=== PATIENT | female | born 2005 | race African-American/Black ===

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

== ENCOUNTER 2025-04-13 21:53 | Emergency (ER) | payer BC, SELFPAY ==
[2025-04-13 21:59] VITALS: BP 109/70; PULSE 114; RESP 16; TEMP 37; O2SAT 98; BMI 16.9
[2025-04-13 22:21] LABS: Appearance Urine Clear (Clear)
[2025-04-13 22:29] LABS: Ur HCG Qualitative* Negative (Negative)
--- NOTE | 2025-04-13 23:03 | ED.ABDPAIN ---
HPI - Abdominal Pain General Chief Complaint: Abdominal Pain Stated Complaint: Lower abd pain Time Seen by Provider: 04/13/25 22:05 History of Present Illness HPI narrative: This 20-year-old female comes in reporting lower abdominal pain that began yesterday and then seemed to worsen this morning. She states that she woke up with lower abdominal pain at about 5:30 a.m.. Pain is persisted through the day but seems to be a bit better as time goes on. She states that she is otherwise healthy. She does not have any vomiting or fever symptoms. She does not have any altered bowel function or dysuria symptoms. She does have a history of a ruptured ovarian cyst that was identified a couple years ago. She does not report any problem taking food today. Related Data Home Medications ?Medication ?Instructions ?Recorded ?Confirmed No Known Home Medications 04/13/25 04/13/25 Allergies Allergy/AdvReac Type Severity Reaction Status Date / Time No Known Drug Allergies Allergy Verified 04/13/25 22:04 Review of Systems Status of ROS Reports: 10 or more systems reviewed and unremarkable except as noted in History and below Narrative Constitutional: No fevers, no weight gain or loss. Eyes: No discharge. No vision changes. HENT: No congestion, no sore throat, no ear pain. Cardiovascular: No chest pain, no palpitations. Respiratory: No shortness of breath, no wheezes, no cough. Gastrointestinal: No vomiting, no diarrhea. Abdominal pain as described above. Genitourinary: No dysuria, no hematuria. Musculoskeletal: Normal range of motion. Skin: No rashes, no pruritis. Neurological: No dizziness, weakness, sensory change, speech change. Endo/Heme/Allergies: No bruising or bleeding. No polydipsia. Pysch: no suicidality, no anxiety, no insomnia. All other systems reviewed and are negative. [facility] Medical History (Updated 04/13/25 @ 23:07 by Kulwinder Franz MD) No significant past medical history Surgical History (Updated 12/08/23 @ 23:33 by Emanuel Messina RN) No significant past surgical history Social History Smoking Status: Never smoker Do you use any of these nicotine containing products: None Second hand tobacco smoke exposure: No How often do you have a drink containing alcohol: monthly or less AUDIT-C Alcohol total score: 1 Non-prescribed substance use: denies use service: No Exam Narrative: Exam Narrative: Constitutional: Well-developed, well-nourished, no acute distress. HEENT: Normocephalic, atraumatic. Neck: Normal range of motion. Nontender. Supple. Heart: Regular. No murmurs. Normal rate. Intact distal pulses. Lungs: Clear to auscultation. No chest discomfort. No wheezes, rhonchi, or rales. Abdomen: Normal bowel sounds. Tenderness across the lower abdomen. No rebound tenderness. Genitalia: Deferred. Back: No midline tenderness. Normal range of motion. Extremities: Normal range of motion. No injury. Skin: Intact. No rash. Warm. No erythema or pallor. Neurologic: No altered sensation. No weakness. Alert and oriented. Psychiatric: No suicidality. No anxiety or depression. No insomnia. Nursing notes and vitals signs are reviewed. Const: Vital Signs, click to edit/add: Vital Signs - 24 hr 04/13/25 21:59 Temperature 98.6 F Pulse Rate [Pulse Oximeter] 114 H Respiratory Rate 16 Blood Pressure [Ri ght Upper Arm] 109/70 Pulse Oximetry 98 Oxygen Delivery Me thod Room Air Course Vital Signs Vital signs: Initial Vital Signs Temperature 98.6 F 04/13/25 21:59 Temperature Source Temporal Artery Scan 04/13/25 21:59 Pulse Rate 114 H 04/13/25 21:59 Respiratory Rate 16 04/13/25 21:59 Blood Pressure 109/70 04/13/25 21:59 Blood Pressure Mean 83 04/13/25 21:59 Pulse Oximetry 98 04/13/25 21:59 Oxygen Delivery Method Room Air 04/13/25 21:59 Vital Signs Temperature 98.6 F 04/13/25 21:59 Pulse Rate 114 H 04/13/25 21:59 Respiratory Rate 16 04/13/25 21:59 Blood Pressure 109/70 04/13/25 21:59 Pulse Oximetry 98 04/13/25 21:59 Oxygen Delivery Method Room Air 04/13/25 21:59 Temperature 98.6 F 04/13/25 21:59 Pulse Rate 114 H 04/13/25 21:59 Respiratory Rate 16 04/13/25 21:59 Blood Pressure 109/70 04/13/25 21:59 Pulse Oximetry 98 04/13/25 21:59 Oxygen Delivery Method Room Air 04/13/25 21:59 MDM - Abdominal Pain MDM Narrative Medical decision making narrative: This patient comes in with lower abdominal pain. She does not really have rebound tenderness and bowel sounds are reassuring. She does not describe any dysuria symptoms but states that she did feel some sense of pressure when voiding urine. Urinalysis is obtained and shows no evidence of infection. She does have some microscopic blood in the urine. She has a negative test. I did discuss imaging options and the patient is preferring to have bedside ultrasound. I did look at her upper and lower abdomen and saw normal anatomy. She does not really have tenderness at McBurney's point. Her pain is more across the lower abdomen just above the pubic bone. And there is some suspicion of a ovarian cyst. Again I did discuss the role of CT imaging and transvaginal ultrasound. The patient decided against doing either of these studies for today but understands that she can return if symptoms are persistent or worsening. She did receive an [employer] prescription for Toradol. Lab Data Labs: Lab Results 04/13/25 Range/Units 22:10 Urine Color Yellow (Yellow) Urine Appearance Clear (Clear) Urine pH 7.0 (5.0-8.5) Ur Specific [place] 1.020 (1.000-1.030) Urine Protein Negative (Negative) Urine Glucose (UA) Negative (Negative) Urine Ketones 2+ A (Negative) Urine Blood Trace-intact A (Negative) Urine Nitrite Negative (Negative) Urine Bilirubin Negative (Negative) Urine Urobilinogen 0.2 (0.2-1.0) Ur Leukocyte Esterase Trace A (Negative) Urine RBC 2-5 A (0-2) Urine WBC 2-5 (0-5) Ur Squamous Epith Cells Few (None-Few) Amorphous Sediment Few A (None) Urine Bacteria Moderate A (None) Urine Mucus Few A (None) Urine HCG, Qual Negative (Negative) Discharge Plan Discharge Clinical Impression: Abdominal pain Patient Disposition: Home, Self-Care Condition: Stable Additional Instructions: Take medication as prescribed and needed. Follow up with MD return if symptoms are persistent or worsening. Prescriptions: No Action No Known Home Medications Follow Up/Referrals: Provider,Not a Local [Primary Care Provider, Family Practice] Stand Alone Forms: [employer] Info Instructions
== END 2025-04-13 23:14 | disposition home or self-care (01) ==
PROVIDERS: Emergency Provider Emergency Medicine Emergency Medical Services
DX: R10.30 Lower abdominal pain, unspecified (principal)
CPT/HCPCS: 81001; 81025; 87086; 99283; 99284

== ENCOUNTER 2025-07-03 17:13 | Emergency (ER) | payer BC, SELFPAY ==
[2025-07-03 17:15] VITALS: BP 123/87; PULSE 93; RESP 18; TEMP 37.2; O2SAT 100; BMI 17.1
--- NOTE | 2025-07-03 17:19 | ED_ITS ---
HPI - General Adult General Chief complaint: Diarrhea Stated complaint: Diarrhea Time Seen by Provider: 07/03/25 17:19 History of Present Illness HPI narrative: Patient presents to the emergency department complaining of diarrhea. Patient states this has been going on for about a week. Patient states any time she eats or drinks she shortly after has a bout of diarrhea. 20-year-old young woman presenting to emergency department with concern of diarrhea. Rather copious and watery. Feels lot of cramping that then resolves mostly after bowel movement. This all began spontaneously about a week ago. She has not had any fever. Has not been vomiting. Any oral ingestion tends to trigger the need to have a bowel movement but mostly from food. Does not have a history of irritable bowel. Treated herself recently with boric acid rinses/do she for presumed yeast infection that she thought probably got from all this frequent stooling. She has had bowel accidents this week. Rather raw anal area so does have some blood now with wiping she says. No particular exposures. Did try Imodium without relief. Even took more than recommended. Does not sure what to do anymore. Related Data Previous Rx's ?Medication ?Instructions ?Recorded diphenoxylate-atropine 2.5 2 tab PO QID PRN diarrhea # 18 tabs 07/03/25 mg-0.025 mg tablet (Lomotil) Allergies Allergy/AdvReac Type Severity Reaction Status Date / Time No Known Drug Allergies Allergy Verified 07/03/25 17:19 Review of Systems Status of ROS: Reports: 6 or more systems reviewed and unremarkable except as noted in History and below [facility] Medical History No significant past medical history Surgical History (Updated 12/08/23 @ 23:33 by Emanuel Messina RN) No significant past surgical history Social History Smoking Status: Never smoker Do you use any of these nicotine containing products: None Second hand tobacco smoke exposure: No How often do you have a drink containing alcohol: monthly or less AUDIT-C Alcohol total score: 1 Non-prescribed substance use: denies use service: No Exam Narrative: Exam Narrative: Pleasant. NAD. Slim. Skin is warm and dry. Oropharynx is moist. Breathing easily. Heart in regular rate and rhythm without murmur rub or gallop. Abdomen with normal bowel sounds is flat soft and nontender although notes that just really has to pee. Const: Vital Signs, click to edit/add: Vital Signs - 24 hr 07/03/25 17:15 Temperature 99.0 F Pulse Rate [Right Pulse Oximeter] 93 Respiratory Rate 18 Blood Pressure [Ri ght Upper Arm] 123/87 Pulse Oximetry 100 Oxygen Delivery Me thod Room Air Documenting provider has reviewed patient's vital signs: yes Course Vital Signs Vital signs: Initial Vital Signs Temperature 99.0 F 07/03/25 17:15 Temperature Source Temporal Artery Scan 07/03/25 17:15 Pulse Rate 93 07/03/25 17:15 Pulse Rhythm Regular 07/03/25 17:15 Pulse Strength 3+ Normal 07/03/25 17:15 Respiratory Rate 18 07/03/25 17:15 Blood Pressure 123/87 07/03/25 17:15 Blood Pressure Mean 99 07/03/25 17:15 Blood Pressure Position Sitting 07/03/25 17:15 Pulse Oximetry 100 07/03/25 17:15 Oxygen Delivery Method Room Air 07/03/25 17:15 Vital Signs Temperature 99.0 F 07/03/25 17:15 Pulse Rate 93 07/03/25 17:15 Respiratory Rate 18 07/03/25 17:15 Blood Pressure 123/87 07/03/25 17:15 Pulse Oximetry 100 07/03/25 17:15 Oxygen Delivery Method Room Air 07/03/25 17:15 Temperature 99.0 F 07/03/25 17:15 Pulse Rate 93 07/03/25 17:15 Respiratory Rate 18 07/03/25 17:15 Blood Pressure 123/87 07/03/25 17:15 Pulse Oximetry 100 07/03/25 17:15 Oxygen Delivery Method Room Air 07/03/25 17:15 Medications Administered Medications: Discontinued Medications Generic Name Dose Route Start Last Admin Trade Name Freq PRN Reason Stop Dose Admin Hyoscyamine 0.25 mg 07/03/25 17:36 07/03/25 18:03 Hyoscyamine Sulfate 0.125 Mg Tab SUBLINGUAL 07/03/25 17:37 0.25 mg ONCE ONE Administration Medical Decision Making MDM Narrative Medical decision making narrative: Likely infectious etiology to this diarrhea. Does not have any particular exposures however had no historical food intolerances/allergies. Expresses some anxiety over collecting stool sample; that she would have to visualize it. She feels that she is managing to keep enough water in orally and she does not really like how IVs seem to fill for up too much or something like that. Is amenable to blood collection. Low risk for C diff but would screen for this as well as general stool culture considering what I am seeing in the community currently. Labs are collected. Overall reassuring. Is normal white count and normal exam I think unlikely to have C diff as noted above. Would still like to collect stool sample for culture. She does decided she would like to try to eat as typically eating is generating bowel movement. We discussed options for treatment. She would appreciate having potential antispasmodic. Prescribed some hyoscyamine Given a sandwich per request. Still unable to produce a stool sample for us over time in the emergency department. Vitals are normal. Does not have a significant escalation in pain in the emergency department. She would prefer to leave with stool sample collection kit See patient discharge plan for further discussion Would recommend barrier cream/paste like triple paste perhaps on the anal area. Maybe a toilet top bidet would be helpful? Continue to push fluids. Gentle diet. Diluted juices, soup broths, soups, crackers, rice, toast. Please bring back a diarrheal stool sample for culture; unless you are all better in the next 2 days. I would otherwise also establish a primary care provider. Am prescribing some Lomotil to slow up your diarrhea. Do not take this or loperamide though if you develop a fever or see repeated blood actually in your stool. Medical Records Medical records reviewed: Yes I reviewed the patient's medical records Lab Data Lab results reviewed: Yes I reviewed the patient's lab results Labs: Lab Results 07/03/25 Range/Units 17:45 WBC 4.80 (4.50-11.00) K/uL RBC 4.74 (4.00-5.20) m/uL Hgb 12.1 (12.0-16.0) gm/dL Hct 37.7 (33.0-51.0) % MCV 80 (80-100) fL MCH 26 (26-34) pg MCHC 32 (32-36) gm/dL RDW Coeff of Atul 13.9 (11.5-15.5) % Plt Count 240 (140-440) K/uL Neut % (Auto) 59.2 (42.0-72.0) % Lymph % (Auto) 28.1 (20-44) % Faulk % (Auto) 11.3 H (0.0-11.0) % Eos % (Auto) 0.8 (0.0-7.0) % Baso % (Auto) 0.4 (0.0-3.0) % Neut # (Auto) 2.84 (1.7-7.0) K/uL Lymph # (Auto) 1.35 (0.90-2.90) K/uL Faulk # (Auto) 0.50 (0.00-0.90) K/UL Eos # (Auto) 0.04 (0.00-0.50) K/uL Baso # (Auto) 0.02 (0.00-0.30) K/uL Abs Immat Gran (auto) 0.01 (0.00-0.30) K/uL Imm/Tot Granulo (auto) 0.2 % Sodium 137 (135-149) mmol/L Potassium 3.7 (3.6-5.1) mmol/L Chloride 105 (96-114) mmol/L Carbon Dioxide 26 (20-32) mmol/L Anion Gap 6 L (7-15) mEq/L BUN 5 (5-24) mg/dL Creatinine 0.6 (0.5-1.5) mg/dL Estimated Creat Clear 113.52 Estimated GFR 132 ml/min Glucose 99 (60-115) mg/dL Calcium 9.0 (8.4-10.6) mg/dL C-Reactive Protein < 0.5 L (0.5-1.0) mg/dL Discharge Plan Discharge Clinical Impression: Diarrhea, Colicky abdominal pain Patient Disposition: Home w/ Parent or Adult Condition: Stable Additional Instructions: Would recommend barrier cream/paste like triple paste perhaps on the anal area. Maybe a toilet top bidet would be helpful? Continue to push fluids. Gentle diet. Diluted juices, soup broths, soups, crackers, rice, toast. Please bring back a diarrheal stool sample for culture; unless you are all better in the next 2 days. I would otherwise also establish a primary care provider. Am prescribing some Lomotil to slow up your diarrhea. Do not take this or loperamide though if you develop a fever or see repeated blood actually in your stool. Prescriptions: New diphenoxylate-atropine [Lomotil] 2.5-0.025 mg tablet 2 tab PO QID PRN (Reason: diarrhea) Qty: 18 0RF Follow Up/Referrals: Provider,Not a Local [Primary Care Provider, Family Practice] Stand Alone Forms: [email or web address] Info Instructions
[2025-07-03] MEDS: HYOSCYAMINE SULFATE 0.125 MG TAB 0.25 MG SUBLINGUAL (18:03)
[2025-07-03 18:04] LABS: Hematocrit* 37.7 % (33.0-51.0); Hemoglobin* 12.1 gm/dL (12.0-16.0); Immature Granulocytes Abs Auto 0.01 K/uL (0.00-0.30); Immature Granulocytes Pct Auto 0.2 %; Lymphocytes Absolute Auto 1.35 K/uL (0.90-2.90); Mean Corpuscular HGB Conc 32 gm/dL (32-36); Mean Corpuscular Hemoglobin 26 pg (26-34); Mean Corpuscular Volume 80 fL (80-100); RDW Coefficient of Variation % 13.9 % (11.5-15.5); Red Blood Count* 4.74 m/uL (4.00-5.20); White Blood Count* 4.80 K/uL (4.50-11.00)
[2025-07-03 18:05] LABS: Slide Review Reflex No
[2025-07-03 18:13] LABS: Chloride* 105 mmol/L (96-114); Potassium* 3.7 mmol/L (3.6-5.1); Sodium* 137 mmol/L (135-149)
[2025-07-03 18:17] LABS: Anion Gap 6 mEq/L (7-15); Blood Urea Nitrogen* 5 mg/dL (5-24); Calcium* 9.0 mg/dL (8.4-10.6); Carbon Dioxide* 26 mmol/L (20-32); Creatinine* 0.6 mg/dL (0.5-1.5); Est. Creatinine Clearance* 113.52; Estimated Glomerular Filt Rate 132 ml/min; Glucose* 99 mg/dL (60-115)
[2025-07-04 11:49] LABS: C.Difficile Negative (Negative); CDIFFEPI 027 PRESUMPTIVE NEGATIVE (Negative)
== END 2025-07-03 20:03 | disposition home or self-care (01) ==
PROVIDERS: Emergency Provider Family Medicine
DX: R19.7 Diarrhea, unspecified (principal); R10.84 Generalized abdominal pain
CPT/HCPCS: 36415; 80048; 85025; 86140; 87045; 87046; 87427; 87493; 99283; 99284; A9270

== ENCOUNTER 2025-09-06 00:19 | Emergency (ER) | payer BC, SELFPAY ==
--- NOTE | 2025-09-06 00:26 | ED.FEVER ---
HPI - Fever General Time Seen by Provider: 00:26 Date Seen: 09/06/25 Chief Complaint: Fever Stated Complaint: Fever, stiff neck Time Seen by Provider: 09/06/25 00:22 Source: patient Mode of arrival: ambulatory History of Present Illness HPI Narrative: Elvira is 20 year old female with no significant past medical history who presents the emergency department for evaluation of fever. Patient reports that on Sunday she got fake eyelashes on. Patient believes she may have developed pinkeye or a chemical reaction/burn to her eye. Patient states that initially on Sunday after the treatment she had watery right eye. Patient states that on Sunday she developed fever with T-max at home of 102, body aches, headache, sore throat, neck pain//shortness. Patient also noted her right eye being sore, burning sensation, as well as redness, and crusty drainage. Patient denies any vision changes, reports discomfort is around the eyelid but no specific eye pain or pain with movement of her eye. Patient does report headache, body aches. Denies any cough, shortness of breath, chest pain, abdominal pain, vomiting. No rash, no urinary symptoms. Patient has been taking Tylenol and NyQuil with symptoms. No family members with similar illnesses. Patient works at [employer] Related Data Home Medications ?Medication ?Instructions ?Recorded ?Confirmed acetaminophen 500 mg tablet 500 mg PO Q6H PRN 09/06/25 09/06/25 (Tylenol Extra Strength) Previous Rx's ?Medication ?Instructions ?Recorded erythromycin 5 mg/gram (0.5 %) eye 1 applic ophthalmic (eye) Q6H 5 09/06/25 ointment days #3.5 grams Allergies Allergy/AdvReac Type Severity Reaction Status Date / Time No Known Drug Allergies Allergy Verified 09/06/25 00:39 Review of Systems Narrative Past medical history, past surgical history, medications, allergies, family history, and social history were reviewed with the patient. No additional pertinent items. A medically appropriate review of systems was performed with pertinent positives and negatives noted in HPI, all other systems negative. [facility] Medical History No significant past medical history Surgical History (Updated 12/08/23 @ 23:33 by Emanuel Messina RN) No significant past surgical history Social History Smoking Status: Never smoker Do you use any of these nicotine containing products: None Second hand tobacco smoke exposure: No How often do you have a drink containing alcohol: monthly or less AUDIT-C Alcohol total score: 1 Non-prescribed substance use: denies use service: No Exam Narrative Exam Narrative: General: Afebrile, in distress HEENT: Normocephalic, atraumatic, right eye with mild erythema to eyelids, periorbital region, +crusty discharge, conjunctiva injected, PERRL, EOMI, no pain with EOMI, posterior pharynx with no significant erythema, swelling, exudates, no asymmetry, TMs non bulging, mild erythema right auditory canal, MMM Neck: non-tender, supple, patient does report soreness with movement of her neck however does still have full range of motion, no meningeal signs Cardio: regular rate. regular rhythm Resp: Normal work of breathing, no respiratory distress, lungs clear bilaterally, no wheezing, rhonchi, rales Chest/Back: no visual signs of trauma, no midline tenderness, no CVA tenderness Abdomen: soft, non distension, no tenderness, no peritoneal signs Neuro: alert and fully oriented. CN II-XII intact. Normal strength and sensation in all extremities. MSK: no deformities. Normal range of motion Integumentary/Skin: no rash visualized, normal color Psych: normal affect, normal behavior Const Vital Signs, click to edit/add: Vital Signs - 24 hr 09/06/25 00:29 09/06/25 00:48 09/06/25 00:53 Temperature 98.8 F 98.8 F Pulse Rate [Right Pulse Oximeter] 127 H 127 H Respiratory Rate 22 22 Blood Pressure [Right Arm] 116/73 Blood Pressure [Right Upper Arm] 116/73 Pulse Oximetry 98 98 98 Oxygen Delivery Method Room Air Room Air Course Vital Signs Vital signs: Initial Vital Signs Temperature 98.8 F 09/06/25 00:29 Temperature Source Temporal Artery Scan 09/06/25 00:29 Pulse Rate 127 H 09/06/25 00:29 Pulse Rhythm Regular 09/06/25 00:29 Respiratory Rate 22 09/06/25 00:29 Blood Pressure 116/73 09/06/25 00:29 Blood Pressure Mean 87 09/06/25 00:29 Blood Pressure Position Supine 09/06/25 00:29 Pulse Oximetry 98 09/06/25 00:29 Oxygen Delivery Method Room Air 09/06/25 00:29 Vital Signs Temperature 98.8 F 09/06/25 00:29 Pulse Rate 127 H 09/06/25 00:29 Respiratory Rate 22 09/06/25 00:29 Blood Pressure 116/73 09/06/25 00:29 Pulse Oximetry 98 09/06/25 00:29 Oxygen Delivery Method Room Air 09/06/25 00:29 Temperature 98.8 F 09/06/25 00:48 Pulse Rate 127 H 09/06/25 00:48 Respiratory Rate 22 09/06/25 00:48 Blood Pressure 116/73 09/06/25 00:48 Pulse Oximetry 98 09/06/25 00:53 Oxygen Delivery Method Room Air 09/06/25 00:48 Medications Administered Medications: Discontinued Medications Generic Name Dose Route Start Last Admin Trade Name Freq PRN Reason Stop Dose Admin Diphenhydramine HCl 25 mg 09/06/25 01:15 09/06/25 03:34 Diphenhydramine 50 Mg/Ml Inj IVP 09/06/25 01:16 25 mg ONCE ONE Administration Sodium Chloride 1,000 mls @ 1,000 mls/hr 09/06/25 01:00 09/06/25 01:00 0.9 % Sodium Chloride 1000 Ml IV 09/06/25 01:59 1,000 mls/hr .Q1H MATILDE Administration Ketorolac Tromethamine 15 mg 09/06/25 00:53 09/06/25 01:00 Ketorolac 15 Mg/Ml Inj IVP 09/06/25 00:54 15 mg ONCE ONE Administration Metoclopramide HCl 10 mg 09/06/25 01:09 09/06/25 03:34 Metoclopramide Hcl 5 Mg/Ml Inj IVP 09/06/25 01:10 10 mg ONCE ONE Administration MDM - Fever MDM Narrative Medical decision making narrative: Elvira is 20 year old female with no significant past medical history who presents the emergency department for evaluation of fever. Upon arrival patient is nontoxic appearing, afebrile, in distress secondary to pain. Patient tachycardic upon arrival with heart rate initially 127 on triage however once settled in the examination room heart rate 99. Blood pressure 116/73, afebrile 98.8, oxygen 98% on room air. Differential diagnosis includes but is not limited to viral illness versus strep versus influenza/COVID/RSV versus conjunctivitis versus less likely preseptal/orbital cellulitis versus less likely meningitis versus less likely pneumonia versus cystitis among others. Upon arrival patient was treated with IV Toradol, Reglan, Benadryl, 1 L IV fluid bolus, comprehensive labs, urinalysis performed. Comprehensive labs remarkable for white blood cell count 9.8, hemoglobin 10.9, lactic normal at 0.7, no acute metabolic electrolyte abnormality, no transaminitis, procalcitonin negative. Viral testing negative for COVID/RSV/influenza. Strep negative. Urinalysis with ketones, nitrite negative, +1 leukocyte esterase, 10-25 white blood cells with moderate squamous cells, moderate bacteria. I discussed results with patient. Patient with no urinary symptoms, could be contaminant. At this time will defer antibiotics and follow-up on urinary culture. On re-evaluation patient does report improvement of her symptoms, patient with improvement of tachycardia at a heart rate of 90. I discussed results with patient. Overall patient is nontoxic appearing. Low suspicious for systemic infection, bacteremia given no leukocytosis, normal procalcitonin, normal lactic acid. Influenza/COVID/RSV/strep negative. Low concern for meningitis/pneumonia/orbital cellulitis given overall nontoxic appearing, ED workup reassuring with laboratory testing unremarkable, patient with no cough, chest pain,, shortness of breath, lungs are clear so will hold off on chest x-ray at this time. Patient with no meningeal signs, suspect more conjunctivitis/chemical reaction then orbital cellulitis given no pain with extraocular movements, no significant orbital erythema, no swelling, no vision changes, afebrile. Discussed with patient all will place her on ophthalmic ointment to her right eye 4 times a day for the next 5 days. Recommend continue supportive care with Tylenol, ibuprofen, rest, oral hydration. Encouraged close outpatient follow-up with primary care provider for re-evaluation. Strict return precautions discussed. Patient understands and agrees with the plan. Medical Records Attestation: I reviewed the patient's medical records. Lab Data Attestation: I reviewed the patient's lab results. Discharge Plan Discharge Clinical Impression: Fever Patient Disposition: Home, Self-Care Condition: Improved Additional Instructions: Please follow-up with your primary care provider in the next 2-3 days for further evaluation and follow-up. Please call to schedule appointment. Please rest, drink plenty of fluids. Please alternate taking Tylenol 1000 mg and ibuprofen 600 mg every 6 hours as needed for fever, body aches. Please apply ophthalmic ointment 4 times a day (every 6 hours) to your right eye. Please return to the emergency department if you develop any worsening symptoms. It was a pleasure taking care of you today. We hope you feel better soon. Activity Level: No Restrictions Discharge Diet: Regular Prescriptions: New erythromycin 5 mg/gram (0.5 %) ointment 1 applic ophthalmic (eye) Q6H 5 Days Qty: 3.5 0RF No Action acetaminophen [Tylenol Extra Strength] 500 mg tablet 500 mg PO Q6H PRN Follow Up/Referrals: Provider,Not a Local [Primary Care Provider, Family Practice] Stand Alone Forms: [employer] Info Instructions
[2025-09-06 00:29] VITALS: BP 116/73; PULSE 127; RESP 22; TEMP 37.1; O2SAT 98; BMI 17.3
[2025-09-06 00:48] VITALS: BP 116/73; PULSE 127; RESP 22; TEMP 37.1; O2SAT 98
[2025-09-06 00:53] VITALS: O2SAT 98
[2025-09-06] MEDS: METOCLOPRAMIDE HCL 5 MG/ML INJ 10 MG IVP (03:34)
[2025-09-06 03:49] VITALS: PULSE 90; O2SAT 100
[2025-09-06 04:22] LABS: Lactate* 0.7 mmol/L (0.5-1.9)
[2025-09-06 04:23] LABS: Hematocrit* 33.1 % (33.0-51.0); Hemoglobin* 10.9 gm/dL (12.0-16.0); Mean Corpuscular HGB Conc 33 gm/dL (32-36); Mean Corpuscular Hemoglobin 25 pg (26-34); Mean Corpuscular Volume 77 fL (80-100); Red Blood Count* 4.29 m/uL (4.00-5.20); White Blood Count* 9.82 K/uL (4.50-11.00)
[2025-09-06 04:24] LABS: Lymphocytes Absolute Auto 0.70 K/uL (0.90-2.90); Slide Review Reflex No
[2025-09-06 04:25] LABS: PCR FLU A Negative PCR FLU A (Negative); PCR FLU B Negative PCR FLU B (Negative); PCR RSV Negative PCR RSV (Negative); SARS PCR* Negative SARS-CoV-2 (Negative)
[2025-09-06 04:28] LABS: HCG Qualitative Serum* Negative (Negative)
[2025-09-06 04:30] LABS: Chloride* 103 mmol/L (96-114); Potassium* 3.4 mmol/L (3.6-5.1); Sodium* 133 mmol/L (135-149)
[2025-09-06 04:31] LABS: Alanine Aminotransferase* 16 U/L (4-35); Albumin* 4.2 g/dL (3.3-5.0); Alkaline Phosphatase* 57 U/L (40-150); Anion Gap 9 mEq/L (7-15); Aspartate Amino Transferase* 33 U/L (12-35); Bilirubin Total* 0.4 mg/dL (0.1-1.5); Blood Urea Nitrogen* 11 mg/dL (5-24); Calcium* 8.7 mg/dL (8.4-10.6); Carbon Dioxide* 21 mmol/L (20-32); Creatinine* 0.5 mg/dL (0.5-1.5); Est. Creatinine Clearance* 137.51; Estimated Glomerular Filt Rate 138 ml/min; Glucose* 96 mg/dL (60-115); Procalcitonin* 0.11 ng/mL (<0.50); Total Protein* 7.4 g/dL (6.0-8.3)
[2025-09-06 04:33] LABS: Appearance Urine Clear (Clear)
== END 2025-09-06 03:50 | disposition home or self-care (01) ==
PROVIDERS: Emergency Provider Emergency Medicine
DX: R50.9 Fever, unspecified (principal); H10.501 Unspecified blepharoconjunctivitis, right eye
CPT/HCPCS: 36415; 80053; 81001; 83605; 84145; 84703; 85025; 87040; 87086; 87631; 87651; 94761; 96361; 96374; 96375; 99284; 99285; J1200; J1885; J2765; J7030